=== PATIENT | female | born 1950 | race Caucasian/White ===

== ENCOUNTER 2016-09-05 06:55 | Emergency (ER) | payer BC ==
[2016-09-05 07:36] LABS: HEMOGLOBIN 15.7 gm/dl (12.3-15.3); RED BLOOD COUNT 5.37 M/UL (4.00-5.10); WHITE BLOOD COUNT 8.2 K/UL (4.5-11.0)
[2016-09-05 08:12] LABS: BUN/CREATININE RATIO 16 (0-10)
== END 2016-09-05 08:42 | disposition home or self-care (01) ==
LOC: ER1 06:55
PROVIDERS: Family Medicine
DX: I47.1 Supraventricular tachycardia (principal); R73.9 Hyperglycemia, unspecified; I10 Essential (primary) hypertension; Z88.1 Allergy status to other antibiotic agents; Z79.899 Other long term (current) drug therapy
CPT/HCPCS: 36415; 71010; 80053; 82550; 82553; 83874; 84443; 84484; 85025; 96374; 99285; J0153; J7030

== ENCOUNTER → 2020-05-02 | Outpatient (CLI) | payer MEDICARE, OTHER ==
[~2020-05-02] MED LIST: AMLODIPINE BESYL5 MG PO; COZAAR 50MG TAB50 MG PO; CYMBALTA60 MG PO; IBU800 MG PO; KEFLEX CAP 500500 MG PO; NEXIUM40 MG PO; PEPCID40 MG PO
== END ==
LOC: EMI 15:11
DX: H90.3 Sensorineural hearing loss, bilateral (principal)
CPT/HCPCS: 36415; 70553; 82565; 84520; A9577

== ENCOUNTER → 2020-05-19 | Outpatient (CLI) | payer MEDICARE, OTHER | LOC: EMI 09:56 | DX: G93.89 Other specified disorders of brain (principal) | CPT/HCPCS: 70553; A9577 ==

== ENCOUNTER → 2020-11-25 | Emergency (ER) | payer OTHER, MEDICARE | END | disposition home or self-care (01) | LOC: ER1 12:45 | DX: M25.512 Pain in left shoulder (principal); M79.642 Pain in left hand; M25.552 Pain in left hip; M25.562 Pain in left knee; I10 Essential (primary) hypertension; V49.40XA Driver injured in collision with unspecified motor vehicles in traffic accident, initial encounter | CPT/HCPCS: 70450; 71045; 72125; 73030; 73130; 73502; 73552; 73562; 73590; 99284 ==

== ENCOUNTER → 2021-03-23 | Outpatient (CLI) | payer MEDICARE, OTHER | LOC: KOH-I 12:50 | DX: M54.2 Cervicalgia (principal); M54.6 Pain in thoracic spine; M47.814 Spondylosis without myelopathy or radiculopathy, thoracic region; M47.812 Spondylosis without myelopathy or radiculopathy, cervical region | CPT/HCPCS: 72040; 72070 ==